=== PATIENT | male | born 1970 | race Asian ===

== ENCOUNTER 2016-11-08 23:05 | Emergency (ER) | payer MEDICARE ==
[~2016-11-08] VITALS: Ht 160 cm; Wt 93.1 kg
[2016-11-08] MEDS ORDERED: MORPHINE SULFATE 4 MG/ML, 1ML IVPush PRN (23:30)
[2016-11-08] MEDS ORDERED: SODIUM CHLORIDE 0.9% 1,000ML IVBOLUS ONE (23:30)
[2016-11-08] MEDS ORDERED: SODIUM CHLORIDE FLUSH 10ML SYR IVF ONE (23:30)
[2016-11-08 23:44] LABS: ASPARTATE AMINO TRANSFERASE 35 U/L (15-37); BLOOD UREA NITROGEN 16 mg/dL (7-18)
[2016-11-09 00:09] LABS: IS PT STATUS REG ER OR PRE ER? YES
[2016-11-09] MEDS ORDERED: DIPHENHYDRAMINE 50 MG/ML, 1ML ONE ×2 (00:15→00:23)
[2016-11-09] MEDS ORDERED: DIPHENHYDRAMINE 50 MG/ML, 1ML IVPush ONE (00:30)
[2016-11-09] MEDS ORDERED: PLEASE ENTER ALLERGIES MC SCH ×2 (00:30)
[2016-11-09] MEDS ORDERED: OMNIPAQUE 350 MG/ML, 100ML BOTTLE ONE (00:51)
[2016-11-09 03:06] LABS: IS PT STATUS REG ER OR PRE ER? YES
[2016-11-09 03:51] VITALS: BP 117/81
== END 2016-11-09 03:53 | disposition home or self-care (01) ==
LOC: ED 23:59
DX: R07.89 Other chest pain (principal); R06.00 Dyspnea, unspecified
CPT/HCPCS: 36415; 71020; 71275; 80053; 83735; 83880; 84100; 84443; 84484; 85025; 93005; 96361; 96374; 99285; J1200; J7030; Q9967